=== PATIENT | female | born 1965 | race Caucasian/White ===

== ENCOUNTER → 2023-01-17 08:51 | Outpatient (BNVA) | payer MEDICARE, SELFPAY | PROVIDERS: PCP Family Medicine; Visit Provider Nurse Practitioner Family | DX: Z13.6 Encounter for screening for cardiovascular disorders (principal); Z78.0 Asymptomatic menopausal state; F32.A Depression, unspecified; F41.9 Anxiety disorder, unspecified; M54.6 Pain in thoracic spine; G47.00 Insomnia, unspecified | CPT/HCPCS: 80053; 80061; 83735; 84443; 85025 ==

== ENCOUNTER 2023-01-24 12:58 | Emergency (ER) | payer MEDICARE, SELFPAY ==
[2023-01-24 13:04] VITALS: BP 160/116; PULSE 107; RESP 20; TEMP 36.6; O2SAT 96; BMI 32.1
--- NOTE | 2023-01-24 13:09 | XR_ITS ---
WS: [id number] Exam: XR shoulder LT min 2V* [id number] Date/Time of Exam: 01/24/2023 1:22 PM Reason For Exam: left shoulder pain No acute fracture or dislocation. Normal-appearing soft tissues. Slight DJD at the AC joint. XR/XR shoulder LT min 2V* [id number] IMPRESSION: 1. No fracture or other significant finding.
--- NOTE | 2023-01-24 13:29 | W.ED.EXTPRO ---
HPI - Extremity Problem General: Chief complaint: Extremity Injury, Upper Stated complaint: left shoulder pain Time Seen by Provider: 01/24/23 13:09 History of Present Illness: Patient is a 57-year-old female comes to the ED with left shoulder pain. Patient thinks she injured her left shoulder couple days ago when lifting a ladder at work. She rates pain a 9 out of 10. Pain is located on the anterior aspect of left shoulder and radiates up right trapezius muscle and down into her upper arm. Denies any other falls or traumas to cause pain. Patient took a dose of Tylenol this morning. Associated symptoms: Deny chest pain, fever(s) or rash Review of Systems Const: Denies: fever(s), chills or fatigue Eyes: Denies: change in vision or eye discomfort ENMT: Denies: throat pain, odynophagia, nasal discharge or nasal congestion Card: Denies: chest pain, palpitations, edema, swelling of feet/ankles, dyspnea on exertion or orthopnea Resp: Denies: dyspnea, productive cough or non-productive cough GI: Denies: abdominal pain, nausea, vomiting, diarrhea, constipation or hematochezia : Denies: flank pain, dysuria or hematuria Musc: Reports: extremity pain (left shoulder pain); Denies: neck pain, back pain or extremity swelling Skin/Breast: Denies: rash or new lesions Neuro: Denies: headache(s), numbness in extremities or weakness in extremities PFSH ED PFSH: Medical History Anxiety and depression Insomnia Surgical History History of carpal tunnel surgery of left wrist History of carpal tunnel surgery of right wrist History of repair of hiatal hernia Hx of colonoscopy Hx of elbow surgery Hx of tonsillectomy Family History Mother Cancer STOMAHCE Father Cancer Social History Smoking and tobacco status: current some day smoker cigarettes Packs smoked per day: 0.1 Years cigarettes smoked: 43 [ Other cigarette details: ONLY SMOKES WHEN SHE GETS MAD OR UPSET] Second hand smoke exposure: No Alcohol intake: current Alcohol intake frequency: holidays/special occasions only Alcohol type: wine and other Lives independently: Yes Household members: children Marital status: Single service: No Current occupational status: employed Current occupational exposures/hazards: No Current gender identity: Female Special elier needs: No Physical Exam Const: COMMON NORMALS: no acute distress, patient oriented x3 and healthy appearing HENMT: COMMON NORMALS: normocephalic HEAD & SCALP: normocephalic MOUTH: Normal oral and palatal mucosa present THROAT: posterior oropharynx normal and uvula midline Neck/C-Spine: COMMON NORMALS: supple GENERAL: Yes normal visual inspection Resp: COMMON NORMALS: normal respiratory effort, No retractions, No use of accessory muscles and clear to auscultation bilaterally AUSCULTATION: clear to auscultation bilaterally Cardio: COMMON NORMALS: regular rate, regular rhythm, S1 normal heart sound present, S2 normal heart sound present, No gallops present (Cardio), No clicks present (Cardio), No murmurs present (Cardio) and Peripheral pulses 2+ throughout RATE: regular rate RHYTHM: regular rhythm HEART SOUNDS: S1 normal heart sound present and S2 normal heart sound present PERIPHERAL PULSES: Peripheral pulses 2+ throughout GI: COMMON NORMALS: Normal to inspection, nondistended, normoactive bowel sounds present, Soft to palpation, non-tender and no masses PALPATION: Yes Soft to palpation : COMMON NORMALS: Yes no CVA tenderness BLADDER/KIDNEY EXAM: Yes no CVA tenderness Back/Pelvis: COMMON NORMALS: no CVA tenderness Extremity: COMMON NORMALS: normal to inspection, full ROM and capillary refill normal Neuro: COMMON NORMALS: patient oriented x3 GAIT: Yes Normal gait present Skin: GENERAL SKIN EXAM: dry skin Course Vital Signs: Vital signs: Vital Signs Temperature 97.9 F 01/24/23 13:04 Pulse Rate 107 H 01/24/23 13:04 Respiratory Rate 20 H 01/24/23 13:04 Blood Pressure 160/116 01/24/23 13:04 Pulse Oximetry 96 01/24/23 13:04 Oxygen Delivery Me thod 01/24/23 13:04 MDM - Extremity (Nontraumatic) Medical Decision Making Patient is a 57-year-old female comes to the ED with left shoulder pain. Patient thinks she injured her left shoulder couple days ago when lifting a ladder at work. She rates pain a 9 out of 10. Pain is located on the anterior aspect of left shoulder and radiates up right trapezius muscle and down into her upper arm. Denies any other falls or traumas to cause pain. Patient took a dose of Tylenol this morning. Vitals are stable. Exam is benign. X-ray of left shoulder showed no acute fractures or findings. Patient was put in a shoulder sling and was stable for discharge home. Told to follow-up with PCP in the next week for reevaluation. Return to ED precautions given. Patient understood and agreed with plan. Lab Data Radiology Impressions Shoulder X-Ray 01/24/23 13:09 IMPRESSION: 1. No fracture or other significant finding. Discharge Plan Discharge Patient Disposition: Home Clinical Impression: Left shoulder strain Qualifiers: Encounter type: initial encounter Qualified Code(s): S46.912A - Strain of unspecified muscle, fascia and tendon at shoulder and upper arm level, left arm, initial encounter Condition: Stable Prescriptions: New methocarbamol 750 mg tablet 750 mg PO Q8H PRN (Reason: Muscle spasms and pain) Qty: 20 0RF No Action lorazepam 1 mg tablet 1 mg PO .HS quetiapine [Seroquel] 300 mg tablet 300 mg PO BID Rx Instructions: take 1/2 of 300 mg tab in the AM and 1 tab at HS diclofenac sodium 75 mg tablet,delayed release (DR/EC) 75 mg PO BID PRN (Reason: pain) Qty: 60 2RF azithromycin 250 mg tablet See Rx Instructions PO .COMPLEX Qty: 6 0RF Rx Instructions: For 250 mg dose pack: take 500 mg today (day 1), then 250 mg for 4 days (days 2-5) PO Discharge Orders: Discharge ED (Routine); Ordered 01/24/23 Ordered By: Bowen Alicea Referrals: Kalpana Dalton MD [Primary Care Provider] - Discharge Diet: Regular Discharge Activity: Increase activity as tolerated Patient Instructions: Shoulder Pain (ED), Opioid Safety Activity Restrictions/Additional Instructions: Follow-up with medical provider as directed in the next 5 to 7 days for reevaluation. Wear shoulder sling for the next couple days to help with symptoms. Make sure to take left arm out of sling multiple times a day and do some range of motion exercises to prevent frozen shoulder. Take medications as prescribed. Return to the ER or your medical provider if condition worsens. Please read and understand discharge instructions. Thank you for choosing [facility] for your healthcare needs today. Please realize this is an emergency room and that we are providing you with a medical screening exam and this may not be complete and all inclusive of all the testing and or work up that you may need to determine your ailment or severity of your illness. It is very important that you follow up as instructed or that you return to the Emergency Department should you have concerns or if your condition changes or worsens in any way. Coding Level of Care Code ED C[employer]ing [employer] To
[2023-01-24] MEDS: HYDROcodone-acetaminophen 5-325 mg Tablet 1 TAB PO (14:01)
== END 2023-01-24 14:47 | disposition home or self-care (01) ==
PROVIDERS: Emergency Provider Physician Assistant; PCP Family Medicine
DX: S46.912A Strain of unspecified muscle, fascia and tendon at shoulder and upper arm level, left arm, initial encounter (principal); F17.210 Nicotine dependence, cigarettes, uncomplicated; X50.0XXA Overexertion from strenuous movement or load, initial encounter
CPT/HCPCS: 73030; 99283

== ENCOUNTER 2023-01-30 14:03 | Outpatient (CLI) | payer MEDICARE, SELFPAY ==
--- NOTE | 2023-01-30 14:00 | XR_ITS ---
WS: [id number] DEXA (DUAL ENERGY X-RAY ABSORPTIOMETRY) Bone mineral density was performed using a [employer] machine. HISTORY: Z78.0 - Asymptomatic menopausal state COMPARISON: None available. Lumbar spine BMD (L1-L4): 1.165 g/cm2 T score: -0.1 Z score: 0.3 Total hip BMD: Left: 0.920 g/cm2. T score: -0.7 Z score: -0.3 Right: 0.985 g/cm2. T score: -0.2 Z score: 0.2 10 year probability of a major osteoporotic fracture is 8.3%. XR/XR DEXA axial skeleton* [id number] IMPRESSION: NORMAL BONE MINERAL DENSITY based upon the WHO classification for females.
== END 2023-01-30 14:04 | disposition home or self-care (01) ==
LOC: RAD 14:08
PROVIDERS: PCP Family Medicine; Visit Provider Nurse Practitioner Family
DX: Z13.820 Encounter for screening for osteoporosis (principal); Z78.0 Asymptomatic menopausal state
CPT/HCPCS: 77080; 80053; 80061; 83735; 84443; 85025